=== PATIENT | male | born 1940 ===

== ENCOUNTER 2017-02-21 15:17 | Inpatient (IN) | payer MEDICARE ==
[~2017-02-21] VITALS: Ht 185.4 cm; Wt 94.3 kg
[2017-02-21 19:30] VITALS: BP 142/70
[2017-02-21] MEDS ORDERED: ACET-2154 PO (19:32)
[2017-02-21] MEDS ORDERED: DIPH50VI4 PO (19:32)
[2017-02-21] MEDS ORDERED: ALLO300T2 PO (19:32)
[2017-02-21] MEDS ORDERED: EVER10TA PO (19:32)
[2017-02-21] MEDS ORDERED: MULT-331 PO (19:32)
[2017-02-21] MEDS ORDERED: CARV6.252 PO (19:32)
[2017-02-21] MEDS ORDERED: CARI350T27 PO (19:32)
[2017-02-21] MEDS ORDERED: MAGN30OR PO (19:32)
[2017-02-21] MEDS ORDERED: HYDR-3326 PO (19:32)
[2017-02-21] MEDS ORDERED: UBID30CA11 PO (19:32)
[2017-02-21] MEDS ORDERED: LISI1TAB9 PO (19:32)
[2017-02-21] MEDS ORDERED: LORA4VIA19 IJ (19:32)
[2017-02-21] MEDS ORDERED: METF10002 PO (19:32)
[2017-02-21] MEDS ORDERED: CELE-85 PO (19:32)
[2017-02-21] MEDS ORDERED: METF500T4 PO (19:32)
--- NOTE | 2017-02-21 19:41 | NUR ---
Received to care Patient resting in bed. Patient is awake and alert x4 and able to verbalize all needs. Respirations are unlabored. No distress noted. Patient reports having pain 4/10 in both legs, and lower back. All other needs met. No complaints of discomfort. Bed in lowest position with 2/4 side rails up. Call light within reach. Bed alarm active for safety. Will continue to monitor.
--- NOTE | 2017-02-21 19:54 | NUR ---
Paged Dr. Early for medication reconciliation. Per MD, he said "okay, sounds good".
[2017-02-21] MEDS ORDERED: Medication Not On Formulary EA (Metformin Hcl 1,000 MG) PO SCH (21:30)
[2017-02-21] MEDS ORDERED: Medication Not On Formulary EA (Magnesium Hydroxide/Al Hydrox (Mag-Al Liquid) 30 ML) PO SCH (21:30)
[2017-02-22] MEDS ORDERED: ACETAMINOPHEN 325 MG TABLET PO SCH
[2017-02-22] MEDS ORDERED: HYDROCODONE/APAP 5-325MG TABLET ONE (00:31)
[2017-02-22] MEDS ORDERED: ACETAMINOPHEN 325 MG TABLET ONE (00:32)
[2017-02-22] MEDS ORDERED: HYDROCHLOROTHIAZIDE 12.5 MG CAPSULE ONE (00:33)
[2017-02-22] MEDS ORDERED: LISINOPRIL 10 MG TABLET ONE (00:33)
[2017-02-22] MEDS: HYDROCODONE/APAP 5-325MG TABLET PO PRN ×2 (00:44→08:55)
[2017-02-22] MEDS: HYDROCHLOROTHIAZIDE 12.5 MG CAPSULE PO SCH ×2 (00:45→08:51)
[2017-02-22] MEDS: LISINOPRIL 10 MG TABLET PO SCH ×2 (00:45→08:51)
[2017-02-22] MEDS: CARISOPRODOL 350 MG TABLET PO PRN ×2 (06:00→17:21)
[2017-02-22] MEDS ORDERED: CARISOPRODOL 350 MG TABLET ONE (06:11)
--- NOTE | 2017-02-22 07:00 | NUR ---
Pt received in bed, A/OX3, no distress noted. HOB elevated, on r/a, safety measures in place, Call light and personal belongings within reach.
[2017-02-22 07:17] LABS: CARBON DIOXIDE 29 mmol/L (21-32); CHLORIDE 101 mmol/L (98-107); CREATININE 1.2 mg/dL (0.6-1.3); GLUCOSE 184 mg/dL (74-106); MAGNESIUM 1.5 mg/dL (1.8-2.4); PHOSPHOROUS 3.7 mg/dL (2.5-4.9); POTASSIUM 3.6 mmol/L (3.5-5.1); UREA NITROGEN, BLOOD 24 mg/dL (7-18)
[2017-02-22 07:21] LABS: BASOPHILS % (AUTO) 0.4 % (0.0-2.0); EOSINOPHILS # (AUTO) 0.2 K/uL (0.0-0.7); EOSINOPHILS % (AUTO) 3.1 % (0.0-7.0); HEMOGLOBIN 8.3 G/DL (14.0-18.0); LYMPHOCYTES # (AUTO) 0.6 K/UL (0.8-4.8); LYMPHOCYTES % (AUTO) 11.2 % (20.5-51.5); MEAN CORPUSCULAR HGB CONC 35 g/dL (32.0-37.0); MEAN CORPUSCULAR VOLUME 80.8 FL (82.0-92.0); MONOCYTES # (AUTO) 0.6 K/UL (0.1-1.30); MONOCYTES % (AUTO) 10.8 % (0.0-11.0); NEUTROPHILS # (AUTO) 4.1 K/UL (1.8-8.9); NEUTROPHILS % (AUTO) 74.5 % (38.5-71.5); PLATELET COUNT (AUTO) 233 K/UL (150-450); RED BLOOD CELL COUNT(AUTO) 2.98 MIL/UL (4.7-6.1); WHITE BLOOD COUNT (AUTO) 5.5 K/UL (4.0-11.2)
[2017-02-22 07:25] VITALS: BP 120/80
[2017-02-22] MEDS ORDERED: MAGNESIUM HYDROXIDE 30 ML LIQUID UDC PO PRN (07:30)
[2017-02-22] MEDS: METFORMIN HCL 500 MG TABLET PO SCH ×2 (08:50→17:21)
[2017-02-22] MEDS: ALLOPURINOL 300 MG TABLET PO SCH (08:50)
[2017-02-22] MEDS: CELECOXIB 200 MG CAPSULE PO SCH ×2 (08:50→17:21)
[2017-02-22] MEDS: MULTIVITAMINS,THERAPEUTIC TABLET PO SCH (08:55)
[2017-02-22] MEDS ORDERED: Medication Not On Formulary EA (Lisinopril/HCTZ (Lisinopril-Hctz 10-12.5 Mg Tab) 1 EACH) PO SCH (09:00)
[2017-02-22] MEDS ORDERED: CARVEDILOL 6.25 MG TABLET PO SCH (09:00)
[2017-02-22] MEDS ORDERED: MULTIVITAMINS PO SCH (09:00)
[2017-02-22] MEDS ORDERED: MAGNESIUM OXIDE 400 MG TABLET PO ONE (12:00)
[2017-02-22] MEDS: CARVEDILOL 6.25 MG TABLET PO SCH ×2 (12:19→17:22)
--- NOTE | 2017-02-22 15:26 | NUR ---
Pt is taking home medication, [facility] pharmacy wants pt to get home medication. Pt states "I don't want to take that medication" he wants to clarify with his oncologist first, he stated he will call his oncologist today. He is not sure if he needs to continue that medication.
--- NOTE | 2017-02-22 18:30 | NUR ---
Pt seen by Dr. Henry discussed plan of care. made aware of [facility] home medication. States Pt can follow up with Oncologist after discharge. Call light within reach. No distress noted. Dressing to Right hip clean intact and patent.
[2017-02-22] MEDS ORDERED: OXYCODONE/APAP 5-325 MG TABLET PO ONE (19:45)
--- NOTE | 2017-02-22 19:45 | NUR ---
Received pt in bed, AAO x [address] Killian. No acute distress noted. Verbally responsive and able to make needs known. Complaining of pain on right hip and back. MD aware, ordered Percocet 5-235 mg PO x 1 now. All safety measures and fall precautions maintained. Call light within reach. Will continue to monitor.
--- NOTE | 2017-02-22 20:21 | NUR ---
Gave Percocet 5-235 mg PO x 1 as ordered by MD. Well tolerated. Call light within reach. Safety maintained. Will continue to monitor.
[2017-02-22 20:56] VITALS: BP 114/66
[2017-02-23] MEDS: HYDROCODONE/APAP 5-325MG TABLET PO PRN ×3 (04:57→23:42)
--- NOTE | 2017-02-23 06:47 | NUR ---
Pt slept well and comfortably throughout the shift. No acute distress noted. Medicated for pain as ordered. Tolerated well. Kept clean and dry. All needs met promptly. Safety maintained. Call light within reach. No current complaints of pain or discomfort. Will endorse to AM shift. Will continue to monitor.
[2017-02-23 08:19] VITALS: BP 136/75
--- NOTE | 2017-02-23 08:19 | NUR ---
Received patient awake, alert x4. With pain over right leg rated as 5/10. Not in any form of distress. CAll light within reach. Will continue to monitor.
[2017-02-23] MEDS ORDERED: EVEROLIMUS 7.5 MG PO SCH (09:00)
[2017-02-23] MEDS: CARVEDILOL 6.25 MG TABLET PO SCH ×2 (09:03→17:24)
[2017-02-23] MEDS: METFORMIN HCL 500 MG TABLET PO SCH ×2 (09:03→17:24)
[2017-02-23] MEDS: DRONABINOL 2.5 MG CAPSULE PO SCH ×2 (09:04→17:24)
[2017-02-23] MEDS: LISINOPRIL 10 MG TABLET PO SCH (09:04)
[2017-02-23] MEDS: ACETAMINOPHEN 325 MG TABLET PO PRN ×2 (09:04→17:25)
[2017-02-23] MEDS: CELECOXIB 200 MG CAPSULE PO SCH ×2 (09:04→17:24)
[2017-02-23] MEDS: ALLOPURINOL 300 MG TABLET PO SCH (09:04)
[2017-02-23] MEDS: HYDROCHLOROTHIAZIDE 12.5 MG CAPSULE PO SCH (09:04)
[2017-02-23] MEDS: MULTIVITAMINS,THERAPEUTIC TABLET PO SCH (09:04)
--- NOTE | 2017-02-23 09:15 | NUR ---
Pain rated as 5/10 over right leg. PRN Tylenol given. Still no bowel movement Milk of Magnesia given.
--- NOTE | 2017-02-23 11:39 | NUR ---
SPOKE WITH PATIENT AND FOLLOWED UP WITH HIM REGARDING THE AFINITOR MEDICATION. PATIENT CALLED HIS ONCOLOGIST DR. GABBY ALSTON AND HE SPOKE WITH MD'S AIRFRAME AND POWERPLANT TECHNICIAN AND PER DOCTOR'S OFFICE THEY WILL CALL BACK THE PATIENT IF THE PATIENT STILL NEEDS TO TAKE THE SAID MEDICATION. CALLED PHARMACY SPOKE WITH DEVORA AND INFORMED OF CURRENT SITUATION. WILL CONTINUE TO FOLLOW- UP.
--- NOTE | 2017-02-23 13:14 | NUR ---
Pain rated as as 7/10 over right leg. PRN [place] given.
--- NOTE | 2017-02-23 14:36 | NUR ---
INTERDISCIPLINARY TEAM SUMMARY
--- NOTE | 2017-02-23 18:32 | NUR ---
Turned and repositioned. Z-guard and Mepilex over sacral area. Tylenol PRN given. Complained of pain over lower back rated as 5/10
--- NOTE | 2017-02-23 19:40 | NUR ---
Received pt in bed, AAO x 3 on his cellphone. Verbally responsive and able to make needs known. No acute distress noted. Attempted to reposition pt, but pt refused. C/O pain in back and right hip 4/10 on pain scale. All safety measures and fall precautions maintained. Call light within reach. Will continue to monitor.
[2017-02-23 20:59] VITALS: BP 106/55
[2017-02-24] MEDS: ACETAMINOPHEN 325 MG TABLET PO PRN ×2 (03:50→14:10)
--- NOTE | 2017-02-24 07:08 | NUR ---
Slept comfortably throughout the shift. No complaints of pain or discomfort currently, medicated PRN with pain medications. Well tolerated. No acute distress noted. Kept clean and dry. All needs met promptly. BM x 3. Safety maintained. Will endorse to AM shift.
[2017-02-24 07:25] LABS: BASOPHILS % (AUTO) 0.7 % (0.0-2.0); EOSINOPHILS # (AUTO) 0.2 K/uL (0.0-0.7); EOSINOPHILS % (AUTO) 3.4 % (0.0-7.0); HEMATOCRIT 24.9 % (36.7-47.1); HEMOGLOBIN 8.8 g/dL (12.5-16.3); LYMPHOCYTES # (AUTO) 0.9 K/uL (20.0-40.0); LYMPHOCYTES % (AUTO) 14.4 % (20.5-51.5); MEAN CORPUSCULAR HEMOGLOBIN 28.4 uug (23.8-33.4); MEAN CORPUSCULAR HGB CONC 35 g/dL (32.5-36.3); MEAN CORPUSCULAR VOLUME 80.5 fL (73.0-96.2); MONOCYTES # (AUTO) 0.6 K/uL (2.0-10.0); MONOCYTES % (AUTO) 10.4 % (0.0-11.0); NEUTROPHILS # (AUTO) 4.3 K/uL (1.8-8.9); NEUTROPHILS % (AUTO) 71.1 % (38.5-71.5); PLATELET COUNT (AUTO) 321 K/uL (152-348)
[2017-02-24 07:47] LABS: IRON, SERUM 35 ug/dL (50-175)
[2017-02-24 07:49] LABS: THYROID STIMULATING HORMONE 5.781 mIU/mL (0.358-3.740)
[2017-02-24 08:01] LABS: ALANINE AMINOTRANSFERASE 51 U/L (16-63); ALKALINE PHOSPHATASE 190 U/L (50-136); ASPARTATE AMINOTRANSFERASE 116 U/L (15-37); BILIRUBIN,TOTAL 0.5 mg/dL (0.2-1.0); CARBON DIOXIDE 31 mmol/L (21-32); CHLORIDE 101 mmol/L (98-107); CHOLESTEROL 165 mg/dL (<200); CREATININE 1.4 mg/dL (0.6-1.3); GLUCOSE 127 mg/dL (74-106); HDL CHOLESTEROL 46 mg/dL (40-60); MAGNESIUM 1.6 mg/dL (1.8-2.4); PHOSPHOROUS 4.1 mg/dL (2.5-4.9); POTASSIUM 3.7 mmol/L (3.5-5.1); TOTAL PROTEIN, SERUM 6.6 g/dL (6.4-8.2); TRIGLYCERIDES 156 MG/DL (30-150); UREA NITROGEN, BLOOD 35 mg/dL (7-18)
[2017-02-24 08:24] VITALS: BP 141/90
[2017-02-24] MEDS: MULTIVITAMINS,THERAPEUTIC TABLET PO SCH (08:35)
[2017-02-24] MEDS: CARVEDILOL 6.25 MG TABLET PO SCH ×2 (08:35→18:04)
[2017-02-24] MEDS: HYDROCHLOROTHIAZIDE 12.5 MG CAPSULE PO SCH (08:36)
[2017-02-24] MEDS: METFORMIN HCL 500 MG TABLET PO SCH ×2 (08:36→18:02)
[2017-02-24] MEDS: DRONABINOL 2.5 MG CAPSULE PO SCH ×2 (08:37→18:02)
[2017-02-24] MEDS: CELECOXIB 200 MG CAPSULE PO SCH ×2 (08:37→18:02)
[2017-02-24] MEDS: ALLOPURINOL 300 MG TABLET PO SCH (08:40)
[2017-02-24] MEDS: HYDROCODONE/APAP 5-325MG TABLET PO PRN ×2 (08:53→18:22)
[2017-02-24] MEDS: LISINOPRIL 10 MG TABLET PO SCH (08:54)
--- NOTE | 2017-02-24 12:23 | NUR ---
Pt report received near bedside this morning, board updated. Pt assessed, awake, alert and oriented x4. Pt compliant with all routine administration of morning medications. Pt stated pain 6/10 of lower back and right leg as well, pain medication administered as PRN orders. Pt verbalized willingness to comply with all scheduled therapies and plan for today discussed. No acute distress noted. All safety and comfort measures met. Call light and personal items within reach. Will continue to monitor.
[2017-02-24] MEDS ORDERED: MAGNESIUM OXIDE 400 MG TABLET PO ONE (12:45)
--- NOTE | 2017-02-24 19:30 | NUR ---
Pt in room alert awake and oriented x 3. No acute distress noted. V/s are WNL. Dressing to right femur intact with no drainage or active bleeding. Mepilex to sacral area intact. States pain to backside 5/10 but refuses medication at this time. Able to move extremities without difficulty. Urinal placed at bedside and call light placed within reach.
[2017-02-25] MEDS: HYDROCODONE/APAP 5-325MG TABLET PO PRN ×3 (01:13→22:04)
--- NOTE | 2017-02-25 02:18 | NUR ---
Pt attempting several times to remove Bipap mask. RT is aware. No s/s of resp distress noted.
[2017-02-25] MEDS: ACETAMINOPHEN 325 MG TABLET PO PRN ×2 (04:44→14:36)
[2017-02-25 08:06] VITALS: BP 134/68
[2017-02-25] MEDS: CARVEDILOL 6.25 MG TABLET PO SCH ×2 (08:17→18:06)
[2017-02-25] MEDS: METFORMIN HCL 500 MG TABLET PO SCH ×2 (08:17→18:04)
[2017-02-25] MEDS: DRONABINOL 2.5 MG CAPSULE PO SCH ×2 (08:19→17:42)
[2017-02-25] MEDS: ALLOPURINOL 300 MG TABLET PO SCH (08:19)
[2017-02-25] MEDS: MULTIVITAMINS,THERAPEUTIC TABLET PO SCH (08:20)
[2017-02-25] MEDS: CELECOXIB 200 MG CAPSULE PO SCH ×2 (08:20→17:43)
--- NOTE | 2017-02-25 08:42 | NUR ---
Pt report received near bedside, board updated. Pt assessed, reports not sleeping well last night, and pain 6/10 lower left back. Pt compliant with all routine morning medication and [place] PRN for pain management. V/S 148/70, 90 pulse. All comfort and safety measures met. Personal items and call light within reach. Will continue to monitor.
[2017-02-25] MEDS: HYDROCHLOROTHIAZIDE 12.5 MG CAPSULE PO SCH (10:47)
[2017-02-25] MEDS: LISINOPRIL 10 MG TABLET PO SCH (10:50)
[2017-02-25] MEDS: Z GUARD REMEDY PASTE 57 GM TUBE TOP SCH ×2 (13:00→22:05)
--- NOTE | 2017-02-25 13:00 | NUR ---
WOUND CARE CONSULT: PT PRESENTS WITH RASH WITH SLIGHT EXCORIATION TO SACRAL/BUTTOCKS AREA. RECOMMENDATIONS MADE FOR SKIN PROTECTION AND CARE. DISCUSSED WITH NURSING STAFF. ALL SKIN PROTECTION MEASURES IN PLACE. WILL SEE PRN. JC IN AGREEMENT WITH PLAN OF CARE. Addendum: 02/25/17 at 1301 by MARISABEL GAMBLE RN Amended: Links added.
--- NOTE | 2017-02-25 13:10 | NUR ---
Pt seen by wound nurse for consult r/t slight rash on sacral/buttocks area. Plan of care discussed and new orders received to add Lortrimin to regimen. Skin protection and wound care interventions will be implemented per orders and endorsed to on coming shift.
--- NOTE | 2017-02-25 14:11 | NUR ---
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 Patient is a 76-year-old male admitted to ARU due to functional decline and impaired mobility. Patient suffered a fall, fracturing his right hip. Per patient, he was diagnosed with metastatic sweat gland cancer in 2014. Patient reported that he has a lot of pain in his lower back, making it difficult to participate in therapies. Mental Status: Patient appeared alert and oriented x4 during interview. He presented as pleasant and cooperative, but had a tearful affect. He made little eye contact during interview. Patient has been in the hospital since February 21, 2017. 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 He seems to be having difficulty coping with his loss of independence and possible role change. He also appears to still be coping with his cancer diagnosis and how it is affecting his life. Patient has been having conflict with his brother and sister due to their disagreements over restorationist. He stated that he "knows his sister loves him", but their disagreements cause him stress. Patient reported that he is exhausted and barely has the strength to talk. However, he reported that the care he is receiving in ARU is "excellent." Social: Patient reported that he receives most of his support from his friends. Many have offered to let him live with them, if that is ever needed. His sister has also visited him in the hospital. Patient currently lives with his older friend, whom he cares for. The friend currently has a caregiver while patient is in the hospital. Goals: Patient stated that his goal is to be able to walk. Interventions: SW engaged in active listening. SW provided emotional support and counseling. SW will provide referrals for caregiver support groups and cancer support groups. SW will encourage patient to comply with rehab goals.
[2017-02-25] MEDS: CLOTRIMAZOLE 1% CREAM 30 GM TUBE TOP SCH ×2 (18:09→22:05)
[2017-02-25] MEDS: Z GUARD REMEDY PASTE 57 GM TUBE TOP PRN (18:10)
--- NOTE | 2017-02-25 18:14 | NUR ---
Pt compliant with all PO medications and topical ointments applied to sacral area with mepilex applied, pictures taken and documented in chart. Pt repositioned per protocol and for comfort. V/s remain WNL. Pt reports having to void excessively being frustrating and would like to speak with Md r/t dose and frequency of related medication. Call light and personal items within reach. All safety and comfort measures met. Will continue to monitor and endorse to rn shift mgr.
--- NOTE | 2017-02-25 19:30 | NUR ---
RECEIVED IN BED, AWAKE, IN NO ACUTE SIGNS OF DISTRESS AT THIS TIME, DENIES PAIN. SAFETY MEASURES RENDERED.
[2017-02-25 20:43] VITALS: BP 119/61
[2017-02-26] MEDS: ACETAMINOPHEN 325 MG TABLET PO PRN ×3 (01:27→17:34)
[2017-02-26] MEDS: HYDROCODONE/APAP 5-325MG TABLET PO PRN ×2 (04:51→21:33)
--- NOTE | 2017-02-26 06:59 | NUR ---
PT SLEPT INTERMITTENTLY. PAIN MANAGEMENT PROVIDED FOR C/O LOWER BACK PAIN. RIGHT HIP INCISION DRESSING INTACT. NO DRAINAGE NOTED. SAFETY MEASURES RENDERED.
--- NOTE | 2017-02-26 07:01 | NUR ---
WOUND TX TO SACRUM.
[2017-02-26] MEDS: MULTIVITAMINS,THERAPEUTIC TABLET PO SCH (08:18)
[2017-02-26] MEDS: DRONABINOL 2.5 MG CAPSULE PO SCH ×2 (08:18→17:20)
[2017-02-26] MEDS: CELECOXIB 200 MG CAPSULE PO SCH ×2 (08:19→17:20)
[2017-02-26] MEDS: ALLOPURINOL 300 MG TABLET PO SCH (08:19)
[2017-02-26] MEDS: METFORMIN HCL 500 MG TABLET PO SCH ×2 (08:19→17:34)
[2017-02-26] MEDS: CARVEDILOL 6.25 MG TABLET PO SCH ×2 (08:21→18:00)
[2017-02-26 08:22] VITALS: BP 145/76
[2017-02-26] MEDS: HYDROCHLOROTHIAZIDE 12.5 MG CAPSULE PO SCH (08:29)
[2017-02-26] MEDS: LISINOPRIL 10 MG TABLET PO SCH (09:00)
[2017-02-26] MEDS: Z GUARD REMEDY PASTE 57 GM TUBE TOP SCH ×2 (09:25→21:38)
[2017-02-26] MEDS: CLOTRIMAZOLE 1% CREAM 30 GM TUBE TOP SCH ×2 (09:26→21:34)
--- NOTE | 2017-02-26 11:49 | NUR ---
Pt alert oriented x4, report received at bedside this morning, and board updated. Pt c/o / pain addressed with PRN Tylenol. Compliant with all routine medications except Diuretic r/t excessive urination, Pt education provided but still refused for today. Lisinipril held due to BP 110/58, 69 HR. Pt friend Yusef visited this earlier this morning. BM x1 cleaned and repositioned. Wound care provided as ordered with Lotrimin and mepilex applied. All comfort and safety measures met. Call light and personal items within reach. Will continue to monitor.
--- NOTE | 2017-02-26 15:27 | NUR ---
Referred by diet office to visit patient as patient request to have late snacks,nourishments. Spoke with the patient, PO intake is fluctuating ranging between 10-100% of meals. RD will rec boost glucose control once w/ dinner ,patient is receiving hs snacks Will monitor po intake. Full nutrition assessment will be per policy schedule. Addendum: 02/26/17 at [address] Amended: Links added.
--- NOTE | 2017-02-26 19:03 | NUR ---
Pt rested comfortably on and off this shift without therapy interruptions. Pt ate meals and tolerated medication administrations well this shift. Pt states 5/10 pain managed through the use of alternating PRN pain medications. Pt uses call light to address toileting assistance plus the use of a urinal at bedside, kept dry and clean. All safety and comfort needs met. Seen by MD, no new orders at this time. Will endorse to on coming caustic cresylate shift superintendent.
--- NOTE | 2017-02-26 19:30 | NUR ---
Patient seen during rounds already sleeping but arouseable to name. Complaining of pain 7/10 on his back and also on his R femur, explained patient the next due pain will be after an hour. Patient understood and provided some nonpharmacological interventions. Repositioned the patient at the same time. Vital signs taken BP 116/59, T 97.9, P 91, R 18, O2 sat on RA 92%. Breathing even and nonlabored. Call light in reach. will monitor the patient.
[2017-02-26 19:40] VITALS: BP 116/59
[2017-02-26] MEDS: Z GUARD REMEDY PASTE 57 GM TUBE TOP PRN (21:34)
[2017-02-27] MEDS: HYDROCODONE/APAP 5-325MG TABLET PO PRN (03:27)
--- NOTE | 2017-02-27 06:30 | NUR ---
Patient complained of pain at 9pm and 3:28am, [place] given per pt's request. Able to after giving the last pain med. Diaper changed per soiling, able to remove his bowel x1 throughout the shift. Sacral area cleansed with soap & water, dried well. Also applied with Lotrimin followed by Z guard and covered with mipalex. Kept clean and dry. All needs attended to. Will endorse to AM nurse.
[2017-02-27 08:08] VITALS: BP 139/73
--- NOTE | 2017-02-27 08:17 | NUR ---
SBAR report received, board updated. Pt awake, alert, and oriented x4. Pt actively participating with therapy at this time. No acute distress or pain noted at this time. Will continue to monitor and return for further assessment and medication administration.
[2017-02-27] MEDS: ACETAMINOPHEN 325 MG TABLET PO PRN ×2 (08:33→16:42)
[2017-02-27] MEDS: DRONABINOL 2.5 MG CAPSULE PO SCH ×2 (08:36→16:44)
[2017-02-27] MEDS: METFORMIN HCL 500 MG TABLET PO SCH ×2 (08:37→18:40)
[2017-02-27] MEDS: MULTIVITAMINS,THERAPEUTIC TABLET PO SCH (08:38)
[2017-02-27] MEDS: CELECOXIB 200 MG CAPSULE PO SCH ×2 (08:39→16:44)
[2017-02-27] MEDS: ALLOPURINOL 300 MG TABLET PO SCH (08:39)
[2017-02-27] MEDS: CARVEDILOL 6.25 MG TABLET PO SCH ×2 (08:41→18:00)
[2017-02-27 09:00] LABS: BASOPHILS # (AUTO) 0.1 K/uL (0.0-8.0); EOSINOPHILS # (AUTO) 0.3 K/uL (0.0-0.7); HEMATOCRIT 31.3 % (36.7-47.1); HEMOGLOBIN 10.4 g/dL (12.5-16.3); LYMPHOCYTES # (AUTO) 1.2 K/uL (20.0-40.0); LYMPHOCYTES % (AUTO) 12.3 % (20.5-51.5); MEAN CORPUSCULAR HEMOGLOBIN 27.5 uug (23.8-33.4); MEAN CORPUSCULAR HGB CONC 33 g/dL (32.5-36.3); MEAN CORPUSCULAR VOLUME 82.9 fL (73.0-96.2); MONOCYTES # (AUTO) 0.8 K/uL (2.0-10.0); MONOCYTES % (AUTO) 8.6 % (0.0-11.0); NEUTROPHILS # (AUTO) 7.4 K/uL (1.8-8.9); NEUTROPHILS % (AUTO) 75.1 % (38.5-71.5); RED BLOOD CELL COUNT(AUTO) 3.78 MIL/uL (4.06-5.63)
[2017-02-27] MEDS: CLOTRIMAZOLE 1% CREAM 30 GM TUBE TOP SCH (09:00)
[2017-02-27] MEDS: LISINOPRIL 10 MG TABLET PO SCH (09:00)
[2017-02-27] MEDS: Z GUARD REMEDY PASTE 57 GM TUBE TOP SCH (09:00)
[2017-02-27] MEDS: HYDROCHLOROTHIAZIDE 12.5 MG CAPSULE PO SCH (09:00)
[2017-02-27 09:06] LABS: ALANINE AMINOTRANSFERASE 71 U/L (16-63); ALKALINE PHOSPHATASE 253 U/L (50-136); ASPARTATE AMINOTRANSFERASE 114 U/L (15-37); BILIRUBIN,TOTAL 0.6 mg/dL (0.2-1.0); CARBON DIOXIDE 27 mmol/L (21-32); CHLORIDE 99 mmol/L (98-107); CREATININE 1.4 mg/dL (0.6-1.3); GLUCOSE 157 mg/dL (74-106); MAGNESIUM 1.3 mg/dL (1.8-2.4); PHOSPHOROUS 4.1 mg/dL (2.5-4.9); POTASSIUM 3.6 mmol/L (3.5-5.1); TOTAL PROTEIN, SERUM 7.6 g/dL (6.4-8.2)
[2017-02-27 09:25] LABS: UREA NITROGEN, BLOOD 29 mg/dL (7-18)
[2017-02-27 09:38] LABS: WHITE BLOOD COUNT (AUTO) 9.8 K/uL (3.6-10.2)
[2017-02-27 09:39] LABS: PLATELET COUNT (AUTO) 464 K/uL (152-348)
--- NOTE | 2017-02-27 17:55 | NUR ---
Pt has no change to status since yesterday. Pt has been compliant with all routine medication administration and therapies. Pt reports feeling fatigued and an increase in pain following physical exertion, and requests Tylenol to tx, administered per PRN protocol and evaluated as effective. Pt was changed this morning for a BMx1, cleaned, wound care to sacral area applied. Pt has been compliant with frequent changes in position as a more prominent way to address discomfort. BL heals off loading and pillows placed to relieve pressure from right side of lower back. Pt refused diuretic again this morning, made aware. Labs drawn. Personal items and call light placed within reach. All safety and comfort measures met. Will continue to monitor and endorse to overnight stocker.
--- NOTE | 2017-02-27 19:40 | NUR ---
Received pt. laying on bed looking uncomfortable but helped and assisted in changing position. Pt. appreciated the help. Denies of pain at this time. Vital signs taken BP 130/58, T 98, P 103, R 18, O2 98% RA. No acute distress noted. Will recheck Pulse rate later. patient appeared calm, relax and said he wants to sleep the whole night tonight. Placed call light and his urinal in reach. Will monito patient.
[2017-02-27 19:45] VITALS: BP 130/58
--- NOTE | 2017-02-27 21:00 | NUR ---
Pulse rate rechecked 95bpm. Patient slept after, denies of pain. Will continue to monitor.
[2017-02-28] MEDS: HYDROCODONE/APAP 5-325MG TABLET PO PRN ×3 (01:07→20:49)
[2017-02-28] MEDS: CLOTRIMAZOLE 1% CREAM 30 GM TUBE TOP SCH ×3 (01:10→20:50)
[2017-02-28] MEDS: Z GUARD REMEDY PASTE 57 GM TUBE TOP PRN ×2 (01:10→20:50)
[2017-02-28] MEDS: Z GUARD REMEDY PASTE 57 GM TUBE TOP SCH ×3 (01:12→20:51)
--- NOTE | 2017-02-28 06:15 | NUR ---
Diaper changed per soiling, soft stool x1 with foul smelling odor noted. Applied Lotrimin & Z guard on sacral area covered with mipalex. Vital signs WNL. Breathing even, no s/s of distress. Will endorse to AM nurse.
[2017-02-28 07:49] VITALS: BP 133/78
[2017-02-28] MEDS: LISINOPRIL 10 MG TABLET PO SCH (09:00)
[2017-02-28] MEDS: CELECOXIB 100 MG CAPSULE PO SCH ×2 (09:09→20:47)
[2017-02-28] MEDS: MULTIVITAMINS,THERAPEUTIC TABLET PO SCH (09:09)
[2017-02-28] MEDS: DRONABINOL 2.5 MG CAPSULE PO SCH ×2 (09:09→18:34)
[2017-02-28] MEDS: METFORMIN HCL 500 MG TABLET PO SCH ×2 (09:10→18:34)
[2017-02-28] MEDS: CARVEDILOL 6.25 MG TABLET PO SCH ×2 (09:13→18:40)
[2017-02-28] MEDS: ALLOPURINOL 300 MG TABLET PO SCH (09:17)
--- NOTE | 2017-02-28 11:18 | NUR ---
SBAR report received at bedside, board updated. Pt awake, alert, and oriented x4. All pertinent assessments completed, no SOB, but c/o pain /. Pt compliant with all routine morning medication administration and [place] administered per PRN orders. V/S 138/79, 99. Plan of care discussed, Chest Xray completed, results pending. All safety and comfort measures implemented. Call light and personal items within reach. Will continue to monitor.
[2017-02-28 16:28] LABS: *BILIRUBIN,URIN NEGATIVE (NEGATIVE); *BLOOD, URINE Trace-intact (NEGATIVE); *CLARITY,URINE SLIGHTLY CLOUDY (CLEAR); *COLOR,URINE YELLOW (YELLOW); *KETONES,URINE NEGATIVE (NEGATIVE); *PROTEIN,URINE NEGATIVE (NEGATIVE); *UROBILINOGEN,URINE 0.2 E.U./dl (NORMAL); LEUKOCYTE ESTERASE ,URINE NEGATIVE (NEGATIVE); NITRITE, URINE NEGATIVE (NEGATIVE); PH,URINE 5.5 (5.0-8.0); UGLUCOSE NEGATIVE (NEGATIVE)
--- NOTE | 2017-02-28 16:28 | NUR ---
Pt sat up for both breakfast and dinner meals today.Actively participated with PT and OT, well tolerated. Urine sample collected and brought to lab. Pain reported at a tolerable level. Will continue to monitor.
[2017-02-28 16:33] LABS: BACTERIA,URINE NONE SEEN /HPF (NONE SEEN); RBC,URINE 0-3 /HPF (0-3); SQUAMOUS EPITHELIAL CELL,UR NONE SEEN /HPF (NONE SEEN); WBC,URINE 0-3 /HPF (0-3)
[2017-02-28] MEDS: ACETAMINOPHEN 325 MG TABLET PO PRN (18:59)
[2017-02-28] MEDS: RIVAROXABAN 10 MG TABLET PO SCH (19:02)
--- NOTE | 2017-02-28 19:40 | NUR ---
Received pt. on bed, feeling uncomfortable complaining that he is passing out soft stools in his diaper. Assessed the pt. and found out that he had 2 episodes of soft stools since Am and this is his 3rd episode. Currently pt had a large, yellow, soft and foul smelling stools. Dr. Killian informed and Dr. Hatch, awaiting for orders. Vital signs taken, BP 118/60, T 98.4, P 92, R 18, O2 at 96% RA. No s/s of distress. Pain level of 6/10 on his back. Repositioned the patient. Call light in reach. Will continue to monitor.
[2017-02-28 20:00] VITALS: BP 118/60
--- NOTE | 2017-02-28 20:30 | NUR ---
Dr. Hatch ordered Stool for C-diff and start contact isolation possible C-diff. Will contnue to monitor.
[2017-02-28] MEDS: MAGNESIUM OXIDE 400 MG TABLET PO SCH (20:47)
--- NOTE | 2017-03-01 01:05 | NUR ---
Dr. Killian ordered Imodium 1 mg Q6hrs PRN for diarrhea. will continue to monitor.
--- NOTE | 2017-03-01 02:54 | NUR ---
Pt. had a BM episode again, still large, soft, yellow and foul smelling stool. will give med for diarrhea. pt. also requests for his pain pill [place] with pain level of 6/10. will continue to monitor the pt.
[2017-03-01] MEDS: LOPERAMIDE HCL 1 MG/5 ML UDC PO PRN (03:12)
[2017-03-01] MEDS: HYDROCODONE/APAP 5-325MG TABLET PO PRN ×2 (03:13→18:20)
[2017-03-01] MEDS ORDERED: LOPERAMIDE HCL 1 MG/5 ML UDC ONE (03:21)
--- NOTE | 2017-03-01 06:02 | NUR ---
pt. slept after pain pill and imodium given. Contact isolation precaution provided. For stool culture. All due meds given. All needs attended to. will endorse to AM shift nurse.
[2017-03-01 07:45] VITALS: BP 124/76
[2017-03-01] MEDS: CARVEDILOL 6.25 MG TABLET PO SCH ×2 (08:00→18:00)
[2017-03-01] MEDS: ALLOPURINOL 300 MG TABLET PO SCH (08:30)
[2017-03-01] MEDS: ACETAMINOPHEN 325 MG TABLET PO PRN ×2 (08:30→21:29)
[2017-03-01] MEDS: MULTIVITAMINS,THERAPEUTIC TABLET PO SCH (08:31)
[2017-03-01] MEDS: DRONABINOL 2.5 MG CAPSULE PO SCH (08:32)
[2017-03-01] MEDS: METFORMIN HCL 500 MG TABLET PO SCH ×2 (08:32→18:06)
[2017-03-01] MEDS: CELECOXIB 100 MG CAPSULE PO SCH ×2 (08:32→21:21)
[2017-03-01] MEDS: LISINOPRIL 10 MG TABLET PO SCH (08:35)
[2017-03-01] MEDS: Z GUARD REMEDY PASTE 57 GM TUBE TOP SCH ×2 (09:15→21:38)
[2017-03-01] MEDS: CLOTRIMAZOLE 1% CREAM 30 GM TUBE TOP SCH ×2 (09:15→21:22)
--- NOTE | 2017-03-01 10:05 | NUR ---
SBAR report received near bedside, board updated. Pt assessed, alert, oriented x4. NAD or SOB, pt reports pain 5/10. Tylenol administered per PRN orders. Pt compliant with all routine morning medication administration, requesting to take Lisinopril instead of Coreg. Pt reminded to use call light when feeling the urge to use the bathroom in order for timely stool sample to be collected. Isolation precautions in place, with no BM since rn shift mgr. Pt compliant with OT, assisted with grooming and dressing for 11:30 fruit picker to be transported to f/u Dr. Mayberry appointment later this afternoon. Travel consent signed, ambulance transportation signed and placed in chart. All comfort and safety measures met. Personal items and call light within reach. Will continue to monitor.
--- NOTE | 2017-03-01 11:30 | NUR ---
Pt denies any pain at this time. V/S WNL, stable conditio. Transportation arrived to slat pickler pt for f/u appointment. Address given by Can patient case manager. Report given to EMT and Pt escorted out.
--- NOTE | 2017-03-01 13:30 | NUR ---
Pt returned, assisted back into bed. No acute distress noted. v/s taken WNL. Lunch tray and snacks provided. Plan of care discussed. Will follow up with MD about possible new orders and activity. Will continue to monitor. All safety and comfort measures met. Call light within reach.
[2017-03-01] MEDS: RIVAROXABAN 10 MG TABLET PO SCH (18:14)
--- NOTE | 2017-03-01 19:40 | NUR ---
Pt. in bed, asleep but was up when called by name. Pt. complained of pain on his back, 07/19 will give Tylenol later. Repositioned patient Vital signs BP 118/68, T 98.4, P 98, R 19, O2 sat 94% RA. Breathing even and nonlabored. Call light within reach. will monitor the pt.
--- NOTE | 2017-03-01 19:52 | NUR ---
Pt has remained stable throughout this shift with no changes. Pt seen by Dr HOSEA,. Carl, no new orders. Will continue to monitor and endorse to night nurse.
[2017-03-01 20:11] VITALS: BP 118/68
[2017-03-01] MEDS: MAGNESIUM OXIDE 400 MG TABLET PO SCH (21:21)
[2017-03-01] MEDS: Z GUARD REMEDY PASTE 57 GM TUBE TOP PRN (21:22)
--- NOTE | 2017-03-02 06:28 | NUR ---
pt. able to sleep throughout the shift. he said he was in pain but only at 2/10, which for him is acceptable and he didn't want any pain pill at all. Photographic wound documentation done and placed in the chart. Wound dry,no discharges noted. Diaper changed per soiling. No episodes of soft stools in our entire shift. Kept clean, dry and comfortable. Will endorse to morning shift nurse.
[2017-03-02 07:30] VITALS: BP 127/77
[2017-03-02 07:31] LABS: BASOPHILS % (AUTO) 0.3 % (0.0-2.0); EOSINOPHILS # (AUTO) 0.2 K/uL (0.0-0.7); EOSINOPHILS % (AUTO) 3.4 % (0.0-7.0); HEMATOCRIT 26.5 % (40-50); HEMOGLOBIN 8.9 G/DL (14.0-18.0); LYMPHOCYTES % (AUTO) 14.4 % (20.5-51.5); MEAN CORPUSCULAR HEMOGLOBIN 27.8 UUG (27.0-31.0); MEAN CORPUSCULAR HGB CONC 34 g/dL (32.0-37.0); MEAN CORPUSCULAR VOLUME 82.8 FL (82.0-92.0); MONOCYTES # (AUTO) 0.8 K/UL (0.1-1.30); MONOCYTES % (AUTO) 10.8 % (0.0-11.0); NEUTROPHILS % (AUTO) 71.1 % (38.5-71.5); PLATELET COUNT (AUTO) 414 K/UL (150-450); RED BLOOD CELL COUNT(AUTO) 3.19 MIL/UL (4.7-6.1)
[2017-03-02 07:50] LABS: ALANINE AMINOTRANSFERASE 48 U/L (16-63); ALKALINE PHOSPHATASE 231 U/L (50-136); ASPARTATE AMINOTRANSFERASE 61 U/L (15-37); BILIRUBIN,TOTAL 0.5 mg/dL (0.2-1.0); CARBON DIOXIDE 30 mmol/L (21-32); CHLORIDE 101 mmol/L (98-107); CREATININE 1.3 mg/dL (0.6-1.3); GLUCOSE 111 mg/dL (74-106); MAGNESIUM 1.4 mg/dL (1.8-2.4); PHOSPHOROUS 3.9 mg/dL (2.5-4.9); POTASSIUM 3.7 mmol/L (3.5-5.1); TOTAL PROTEIN, SERUM 6.7 g/dL (6.4-8.2); UREA NITROGEN, BLOOD 28 mg/dL (7-18)
[2017-03-02] MEDS: ACETAMINOPHEN 325 MG TABLET PO PRN ×2 (08:24→15:26)
[2017-03-02] MEDS: MULTIVITAMINS,THERAPEUTIC TABLET PO SCH (08:27)
[2017-03-02] MEDS: ALLOPURINOL 300 MG TABLET PO SCH (08:28)
[2017-03-02] MEDS: CELECOXIB 100 MG CAPSULE PO SCH ×2 (08:28→20:37)
[2017-03-02] MEDS: DRONABINOL 2.5 MG CAPSULE PO SCH ×2 (08:30→17:50)
[2017-03-02] MEDS: METFORMIN HCL 500 MG TABLET PO SCH ×2 (08:31→17:51)
[2017-03-02] MEDS: CARVEDILOL 6.25 MG TABLET PO SCH ×2 (08:32→18:00)
[2017-03-02] MEDS: CLOTRIMAZOLE 1% CREAM 30 GM TUBE TOP SCH ×2 (08:33→20:38)
[2017-03-02] MEDS: Z GUARD REMEDY PASTE 57 GM TUBE TOP SCH ×2 (08:34→20:38)
[2017-03-02] MEDS: Z GUARD REMEDY PASTE 57 GM TUBE TOP PRN (08:34)
[2017-03-02] MEDS: LISINOPRIL 10 MG TABLET PO SCH (09:00)
--- NOTE | 2017-03-02 10:47 | NUR ---
SBAR report received at bedside, board updated. Pt assessed, pain 09/18, NAD, no SOB. Tylenol administered per PRN orders. V/S taken. Pt compliant with all routine morning medications. All comfort and safety measures met at this time. Call light and personal items within reach. Will continue to monitor.
--- NOTE | 2017-03-02 14:13 | NUR ---
Pt had bowel movement in diaper, stool sample collected and sent to lab. Pt assisted, clean, dry, and ointment applied. Will f/u for results r/t if continued isolation is still required.
--- NOTE | 2017-03-02 15:19 | NUR ---
INTERDISCIPLINARY TEAM CONFERENCE
--- NOTE | 2017-03-02 15:22 | NUR ---
INTERDISCIPLINARY TEAM CONFERENCE
[2017-03-02] MEDS: LOPERAMIDE HCL 1 MG/5 ML UDC PO PRN (15:26)
[2017-03-02 15:58] VITALS: BP 125/69
[2017-03-02] MEDS ORDERED: MAGNESIUM OXIDE 400 MG TABLET PO ONE (17:15)
[2017-03-02] MEDS: RIVAROXABAN 10 MG TABLET PO SCH (18:01)
--- NOTE | 2017-03-02 19:38 | NUR ---
Pt seen by MD, no new orders or changes to Pt status. Will endorse to recreation facility manager.
[2017-03-02 19:49] VITALS: BP 109/60
--- NOTE | 2017-03-02 20:00 | NUR ---
NSG: RECEIVED PATIENT LAYING IN BED.A/O X3 VERBALLY RESPONSIVE. PLEASANT UPON APPROACH. CONTINUE ON CONTACT ISOLATION. NO C/O PAIN OR DISCOMFORT AT THIS TIME. ASSISTED IN ADL'S. INSTRUCTED TO CALL NURSE FOR PAIN AND ASSISTANCE VIA CALL LIGHT. CALL LIGHT W/IN REACH.
[2017-03-02] MEDS: MAGNESIUM OXIDE 400 MG TABLET PO SCH (20:37)
[2017-03-02] MEDS: HYDROCODONE/APAP 5-325MG TABLET PO PRN (20:46)
[2017-03-03] MEDS: ACETAMINOPHEN 325 MG TABLET PO PRN (05:36)
--- NOTE | 2017-03-03 06:54 | NUR ---
NSG:pt.Patient slept well throughout the shift. medicated x2 with norco and tylenol for pain through the night. Wound dry,no discharges noted. Assisted to use urinal as needed. No episodes of loose stools in our entire shift. Kept clean, dry and comfortable. Resting in bed comfortably. call light w/in reach.
--- NOTE | 2017-03-03 08:10 | NUR ---
Received patient, resting in bed. Alert, awake x4. With tolerable pain over right leg. Refused pain medications. Not in apparent distress. Call light within reach.
[2017-03-03] MEDS: MULTIVITAMINS,THERAPEUTIC TABLET PO SCH (09:00)
[2017-03-03] MEDS: ALLOPURINOL 300 MG TABLET PO SCH (09:01)
[2017-03-03] MEDS: METFORMIN HCL 500 MG TABLET PO SCH ×2 (09:01→17:34)
[2017-03-03] MEDS: CELECOXIB 100 MG CAPSULE PO SCH ×2 (09:01→21:53)
[2017-03-03] MEDS: Z GUARD REMEDY PASTE 57 GM TUBE TOP SCH ×2 (09:01→21:00)
[2017-03-03] MEDS: LISINOPRIL 10 MG TABLET PO SCH (09:01)
[2017-03-03] MEDS: DRONABINOL 2.5 MG CAPSULE PO SCH ×3 (09:01→17:44)
[2017-03-03] MEDS: CLOTRIMAZOLE 1% CREAM 30 GM TUBE TOP SCH ×2 (09:02→21:58)
[2017-03-03] MEDS: CARVEDILOL 6.25 MG TABLET PO SCH ×2 (09:02→17:44)
[2017-03-03 10:01] VITALS: BP 130/73
[2017-03-03 10:36] VITALS: BP 116/66
--- NOTE | 2017-03-03 13:03 | NUR ---
Patient able to transfer well to toilet with minimal assistance. No BM. No complaints of abdominal discomfort. Tolerated lunch well.
[2017-03-03] MEDS: HYDROCODONE/APAP 5-325MG TABLET PO PRN ×2 (14:42→21:54)
--- NOTE | 2017-03-03 16:00 | NUR ---
With pain over leg rated as 8/10. PRN [place] given
[2017-03-03] MEDS: RIVAROXABAN 10 MG TABLET PO SCH (17:33)
--- NOTE | 2017-03-03 17:51 | NUR ---
Refused Marinol and patient said he does not want to be hungry all the time. Discussed risks and benefits but patient still refuses.
--- NOTE | 2017-03-03 19:30 | NUR ---
Received pt resting comfortably in bed. Visitors at bedside. AAO x4. Able to make needs known. In contact isolation for possible C. diff. Result pending. No acute distress noted. No c/o pain or discomfort at this time. Safety measures and isolation maintained. Call light and personal belongings within reach. Will continue to monitor.
[2017-03-03 21:51] VITALS: BP 111/64
[2017-03-03] MEDS: MAGNESIUM OXIDE 400 MG TABLET PO SCH (21:54)
[2017-03-03] MEDS: Z GUARD REMEDY PASTE 57 GM TUBE TOP PRN ×3 (21:58→22:00)
[2017-03-04] MEDS: ACETAMINOPHEN 325 MG TABLET PO PRN ×2 (03:58→19:56)
--- NOTE | 2017-03-04 05:39 | NUR ---
Pt slept comfortably t/o the night. Pt complained of pain and was given [place] last night and also tylenol this commercial real estate underwriter. Vital signs stable. On contact isolation for possible c. diff. Safety measures maintained. Call light within reach. Will endorse to day shift RN. Continue to monitor.
--- NOTE | 2017-03-04 07:10 | NUR ---
RECEIVED REPORT FROM NEUROLOGY SPECIALIST NURSE, RESP EVERN/UNLABORED, NO S/S OF PAIN, PT RESTING COMFORTABLE, CALL LIGHT IN REACH, WILL CONTINUE TO MONITOR.
[2017-03-04] MEDS: MULTIVITAMINS,THERAPEUTIC TABLET PO SCH (08:48)
[2017-03-04] MEDS: DRONABINOL 2.5 MG CAPSULE PO SCH ×2 (08:48→17:00)
[2017-03-04] MEDS: ALLOPURINOL 300 MG TABLET PO SCH (08:48)
[2017-03-04] MEDS: CELECOXIB 100 MG CAPSULE PO SCH ×2 (08:48→21:07)
[2017-03-04] MEDS: METFORMIN HCL 500 MG TABLET PO SCH ×2 (08:48→17:32)
[2017-03-04] MEDS: CARVEDILOL 6.25 MG TABLET PO SCH ×2 (08:49→17:32)
[2017-03-04] MEDS: LISINOPRIL 10 MG TABLET PO SCH (09:29)
[2017-03-04] MEDS: Z GUARD REMEDY PASTE 57 GM TUBE TOP SCH ×2 (09:30→21:08)
[2017-03-04] MEDS: CLOTRIMAZOLE 1% CREAM 30 GM TUBE TOP SCH ×2 (09:30→21:08)
--- NOTE | 2017-03-04 13:28 | NUR ---
PT SLEEPING INTERMITTENTLY, NO C/O PAIN, CALL LIGHT IN REACH WILL CONTINUE TO MONITOR PT
[2017-03-04] MEDS: RIVAROXABAN 10 MG TABLET PO SCH (18:18)
--- NOTE | 2017-03-04 18:35 | NUR ---
PT RESTING COMFORTABLY IN BED NO C/O PAIN, CALL LIGHT IN REACH, WILL ENDORSE TO PAINTER AIRBRUSH NURSE.
--- NOTE | 2017-03-04 19:49 | NUR ---
Received pt resting comfortably in bed. AAOx4. No acute distress noted. C/o pain 6/10 on the back. Will follow through with intervention. Dr. Henry talking to the patient at bedside right now. Contact isolation for possible c.diff. Safety measures and isolation maintained. Call light and personal belongings within reach. Will continue to monitor.
[2017-03-04] MEDS: MAGNESIUM OXIDE 400 MG TABLET PO SCH (21:07)
[2017-03-04 21:16] VITALS: BP 113/60
--- NOTE | 2017-03-04 21:30 | NUR ---
Result for c.diff came out to be negative. Notified Dr. Henry and ordered to D/C isolation. Carried out order. Will continue to monitor patient.
[2017-03-05] MEDS: HYDROCODONE/APAP 5-325MG TABLET PO PRN ×3 (01:54→17:10)
--- NOTE | 2017-03-05 05:34 | NUR ---
Pt slept intermittently at night. C/o pain 7/10 on his back and [place] was given at around 0200. Contact isolation was D/C. Meds given as prescribed. All needs attended to promptly. Safety measures maintained. Call light and personal belongings within reach. Will endorse to day shift RN. Continue to monitor.
--- NOTE | 2017-03-05 08:17 | NUR ---
PATIENT NOTED RESTING IN BED WITH EYES CLOSED, COMPLAINS OF PAIN 09/18, NO SIGNS OF DISTRESS NOTED, CALL IGHT IN REACH, BED LOCKED AND IN LOWEST POSITION
[2017-03-05] MEDS: CELECOXIB 100 MG CAPSULE PO SCH ×2 (08:47→21:25)
[2017-03-05] MEDS: METFORMIN HCL 500 MG TABLET PO SCH ×2 (08:47→17:09)
[2017-03-05] MEDS: MULTIVITAMINS,THERAPEUTIC TABLET PO SCH (08:47)
[2017-03-05] MEDS: CARVEDILOL 6.25 MG TABLET PO SCH ×2 (08:48→17:09)
[2017-03-05] MEDS: ALLOPURINOL 300 MG TABLET PO SCH (08:48)
[2017-03-05] MEDS: LISINOPRIL 10 MG TABLET PO SCH (08:49)
[2017-03-05] MEDS: Z GUARD REMEDY PASTE 57 GM TUBE TOP SCH ×2 (08:52→21:26)
[2017-03-05] MEDS: CLOTRIMAZOLE 1% CREAM 30 GM TUBE TOP SCH ×2 (08:52→21:57)
[2017-03-05 09:00] VITALS: BP 127/61
[2017-03-05] MEDS: RIVAROXABAN 10 MG TABLET PO SCH (17:05)
[2017-03-05 20:33] VITALS: BP 104/54
[2017-03-05] MEDS: CARISOPRODOL 350 MG TABLET PO PRN (21:24)
[2017-03-05] MEDS: diphenhydrAMINE 25 MG/10 ML UDC NG PRN (21:25)
[2017-03-05] MEDS: MAGNESIUM OXIDE 400 MG TABLET PO SCH (21:25)
[2017-03-06] MEDS: HYDROCODONE/APAP 5-325MG TABLET PO PRN ×2 (02:32→15:05)
[2017-03-06 07:10] VITALS: BP 122/81
[2017-03-06] MEDS: METFORMIN HCL 500 MG TABLET PO SCH ×2 (07:49→17:41)
[2017-03-06] MEDS: CARISOPRODOL 350 MG TABLET PO PRN (07:50)
[2017-03-06] MEDS: CARVEDILOL 6.25 MG TABLET PO SCH ×2 (07:50→17:41)
[2017-03-06] MEDS: MULTIVITAMINS,THERAPEUTIC TABLET PO SCH (09:45)
[2017-03-06] MEDS: ALLOPURINOL 300 MG TABLET PO SCH (09:45)
[2017-03-06] MEDS: CELECOXIB 100 MG CAPSULE PO SCH ×2 (09:45→20:14)
[2017-03-06] MEDS: LISINOPRIL 10 MG TABLET PO SCH (09:45)
[2017-03-06] MEDS: CLOTRIMAZOLE 1% CREAM 30 GM TUBE TOP SCH ×2 (09:51→20:15)
[2017-03-06] MEDS: Z GUARD REMEDY PASTE 57 GM TUBE TOP SCH ×2 (09:52→20:15)
[2017-03-06] MEDS: RIVAROXABAN 10 MG TABLET PO SCH (17:42)
--- NOTE | 2017-03-06 19:16 | NUR ---
patient stable throughout shift. VS WNL. all medication given per MD order. norco effective for pain in lower back. will endorse to referral agent.
--- NOTE | 2017-03-06 19:35 | NUR ---
Received pt complaining of pain on his back 09/18. Assisted to the walker as he tried to relieve the pain by sitting down. Patient asked for pain med. Will follow through with interventions. No acute distress noted. No c/o pain or discomfort at this time. Safety measures maintained. Call light and personal belongings within reach. Will continue to monitor.
[2017-03-06] MEDS: ACETAMINOPHEN 325 MG TABLET PO PRN (20:14)
[2017-03-06] MEDS: MAGNESIUM OXIDE 400 MG TABLET PO SCH (20:14)
[2017-03-06 20:33] VITALS: BP 116/60
[2017-03-06] MEDS: diphenhydrAMINE 25 MG/10 ML UDC NG PRN (21:02)
[2017-03-07] MEDS: HYDROCODONE/APAP 5-325MG TABLET PO PRN ×2 (03:29→13:05)
--- NOTE | 2017-03-07 05:20 | NUR ---
Patient slept intermittently at night. C/o of pain on the back 10/18, interventions followed and norco given for pain and was effective. All needs attended to promptly. Safety measures maintained. Call light within reach. Will endorse to day shift RN. Continue to monitor.
[2017-03-07 07:10] VITALS: BP 106/54
[2017-03-07] MEDS: MULTIVITAMINS,THERAPEUTIC TABLET PO SCH (07:48)
[2017-03-07] MEDS: CELECOXIB 100 MG CAPSULE PO SCH ×2 (07:49→20:02)
[2017-03-07] MEDS: ACETAMINOPHEN 325 MG TABLET PO PRN ×2 (07:49→17:46)
[2017-03-07] MEDS: METFORMIN HCL 500 MG TABLET PO SCH ×2 (07:49→17:06)
[2017-03-07] MEDS: Z GUARD REMEDY PASTE 57 GM TUBE TOP SCH ×2 (07:49→20:00)
[2017-03-07] MEDS: ALLOPURINOL 300 MG TABLET PO SCH (07:49)
[2017-03-07] MEDS: CLOTRIMAZOLE 1% CREAM 30 GM TUBE TOP SCH ×2 (07:50→20:01)
[2017-03-07] MEDS: LISINOPRIL 10 MG TABLET PO SCH (07:55)
[2017-03-07] MEDS: CARVEDILOL 6.25 MG TABLET PO SCH ×2 (07:55→17:32)
[2017-03-07] MEDS: RIVAROXABAN 10 MG TABLET PO SCH (17:22)
--- NOTE | 2017-03-07 19:03 | NUR ---
End of shift: Pt resting in bed awake and alert with fall precautions and safety measures maintained. Call light within reach and all needs met. Pt stable and nad noted.
--- NOTE | 2017-03-07 19:51 | NUR ---
Received pt resting comfortably in bed. AAO x4. No acute distress noted. C/o pain on the back 09/18. Will follow through with interventions. Safety measures maintained. Call light and personal belongings within reach. Will continue to monitor.
[2017-03-07] MEDS: diphenhydrAMINE 25 MG/10 ML UDC NG PRN (20:01)
[2017-03-07] MEDS: MAGNESIUM OXIDE 400 MG TABLET PO SCH (20:01)
[2017-03-08] MEDS: HYDROCODONE/APAP 5-325MG TABLET PO PRN ×3 (01:45→17:07)
[2017-03-08] MEDS: ACETAMINOPHEN 325 MG TABLET PO PRN (06:04)
--- NOTE | 2017-03-08 06:20 | NUR ---
Pt slept comfortably t/o the night. Vital signs stable. C/o pain this morning and was given tylenol. Pt is to be discharged today. Wound site healing well. All needs attended to promptly. Safety measures maintained. Call light and personal belongings within reach. Will endorse to day shift RN. Continue to monitor.
--- NOTE | 2017-03-08 07:24 | NUR ---
RECEIVED PATIENT ASLEEP, LYING ON BED ON A SEMI- GAVIRIA'S POSITION WITH NO SOB, DISTRESS OR ANY DISCOMFORTS NOTED. EASILY AROUSED WITH CALL LIGHT WITHIN REACH. ALL NEEDS WERE ATTENDED AND ANTICIPATED. WILL CONTINUE TO MONITOR.
[2017-03-08] MEDS: CARVEDILOL 6.25 MG TABLET PO SCH ×2 (08:22→17:08)
[2017-03-08] MEDS: METFORMIN HCL 500 MG TABLET PO SCH ×2 (08:22→17:06)
[2017-03-08] MEDS: MULTIVITAMINS,THERAPEUTIC TABLET PO SCH (08:22)
[2017-03-08] MEDS: LISINOPRIL 10 MG TABLET PO SCH (08:22)
[2017-03-08 08:23] VITALS: BP 146/80
[2017-03-08] MEDS: CELECOXIB 100 MG CAPSULE PO SCH (08:23)
[2017-03-08] MEDS: ALLOPURINOL 300 MG TABLET PO SCH (08:24)
[2017-03-08] MEDS: Z GUARD REMEDY PASTE 57 GM TUBE TOP SCH (08:33)
[2017-03-08] MEDS: CLOTRIMAZOLE 1% CREAM 30 GM TUBE TOP SCH (08:33)
--- NOTE | 2017-03-08 15:03 | NUR ---
RECEIVED NEW ORDER FROM DR. MARINO TO DISCHARGE THE PATIENT TODAY TO [facility] WITH [facility] FOR PT/ OT/ NURSING. ALSO FOLLOW UP APPT WITH DR. SILVA ON MARCH 16, 2017 AT 11:15AM. ORDERS WERE NOTED AND CARRIED OUT. PATIENT MADE AWARE AND AGREED. OFFERED FLU SHOT TO THE PATIENT BUT PATIENT REFUSED TO HAVE HIS FLU SHOT. EXPLAINED RISKS AND BENEFITS BUT STILL PATIENT STRONGLY REFUSED. INFORMED.
--- NOTE | 2017-03-08 15:30 | NUR ---
REPORT GIVEN TO ANNALISE SNEED. PICTURES OF PATIENT'S RIGHT HIP SURGICAL INCISION AND SACRAL SITES WERE TAKEN, FILED IN PATIENT'S CHART.
[2017-03-08] MEDS: RIVAROXABAN 10 MG TABLET PO SCH (17:01)
[2017-03-08 17:08] VITALS: BP 118/70
--- NOTE | 2017-03-08 17:29 | NUR ---
Patient was discharged to [facility] in stable condition. Alert and oriented able to verbalize needs. All belongings were complete. 1800 scheduled medications were given. [place] 5-325 was given since patient verbalized he is in pain. reported to 3 grommet machine operator of [facility]. Patient was transported to [facility] on a gurney on an ambulance with no SOB or distress. Health teachings were given to the patient, verbalized understanding.
== END 2017-03-08 17:30 | disposition home health service (06) | DRG 559 ==
PROVIDERS: ADMIT Physical Medicine & Rehabilitation Pain Medicine; ATTEND Physical Medicine & Rehabilitation Pain Medicine
DX: S72.141D Displaced intertrochanteric fracture of right femur, subsequent encounter for closed fracture with routine healing (principal); E43 Unspecified severe protein-calorie malnutrition; N17.0 Acute kidney failure with tubular necrosis; D68.59 Other primary thrombophilia; C79.9 Secondary malignant neoplasm of unspecified site; D50.0 Iron deficiency anemia secondary to blood loss (chronic); E11.9 Type 2 diabetes mellitus without complications; E83.42 Hypomagnesemia; Z85.828 Personal history of other malignant neoplasm of skin; E03.9 Hypothyroidism, unspecified; I10 Essential (primary) hypertension; R26.9 Unspecified abnormalities of gait and mobility; W19.XXXD Unspecified fall, subsequent encounter; T83.83XD Hemorrhage due to genitourinary prosthetic devices, implants and grafts, subsequent encounter; R53.1 Weakness; F32.9 Major depressive disorder, single episode, unspecified; K59.00 Constipation, unspecified; M10.9 Gout, unspecified; M19.90 Unspecified osteoarthritis, unspecified site; M54.5 Low back pain; R19.7 Diarrhea, unspecified; M47.9 Spondylosis, unspecified
CPT/HCPCS: 36415; 71010; 82306; 83550; 83735; 84100; 84443; 85025; 86625; 87046; 87086; 92523; 92526; 92610; 97110; 97112; 97116; 97165; 97530; 97535; A4663; Q0163; Q0167

== ENCOUNTER 2017-05-07 23:33 | Inpatient (IN) | payer MEDICARE ==
[~2017-05-07] VITALS: Ht 185.4 cm; Wt 73.3 kg
[~2017-05-07 23:33] MED LIST: ACET-2154 PO; ALLO300T2 PO; CARI350T27 PO; CARV6.252 PO; CELE-85 PO; DIPH50VI4 PO; EVER10TA PO; HYDR-3326 PO; LISI1TAB9 PO; LORA4VIA19 IJ; MAGN30OR PO; METF10002 PO; METF500T4 PO; MULT-331 PO; UBID30CA11 PO
--- NOTE | 2017-05-07 23:42 | NUR ---
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 Pt c/o up to 10/10 anal pain and lesser ABD generalized pain. Pt denies CP, SOB, dizziness, n/v, no other complaints, minor distress noted.
[2017-05-08] MEDS ORDERED: IV NORMAL SALINE 1000 ML BAG IV ONE
[2017-05-08] MEDS ORDERED: ONDANSETRON 4 MG/2 ML VIAL IV ONE
[2017-05-08] MEDS ORDERED: HYDROMORPHONE 1 MG/1 ML DISP.SYRIN ONE ×2 (00:21→02:27)
[2017-05-08] MEDS ORDERED: ONDANSETRON 4 MG/2 ML VIAL ONE ×2 (00:21→02:27)
[2017-05-08 00:34] LABS: ALANINE AMINOTRANSFERASE 15 U/L (16-63); ALKALINE PHOSPHATASE 360 U/L (50-136); ASPARTATE AMINOTRANSFERASE 94 U/L (15-37); BILIRUBIN,DIRECT 0.1 mg/dL (0.0-0.2); BILIRUBIN,TOTAL 0.4 mg/dL (0.2-1.0); CARBON DIOXIDE 29 mmol/L (21-32); CHLORIDE 98 mmol/L (98-107); CREATININE 1.2 mg/dL (0.6-1.3); GLUCOSE 135 mg/dL (74-106); LIPASE 124 U/L (73-393); POTASSIUM 3.6 mmol/L (3.5-5.1); TOTAL PROTEIN, SERUM 7.4 g/dL (6.4-8.2); UREA NITROGEN, BLOOD 28 mg/dL (7-18)
[2017-05-08 00:43] LABS: BASOPHILS % (AUTO) 0.3 % (0.0-2.0); EOSINOPHILS % (AUTO) 0.5 % (0.0-7.0); HEMATOCRIT 35.7 % (36.7-47.1); LYMPHOCYTES # (AUTO) 1.1 K/uL (20.0-40.0); LYMPHOCYTES % (AUTO) 16.7 % (20.5-51.5); MEAN CORPUSCULAR HEMOGLOBIN 27.6 uug (23.8-33.4); MEAN CORPUSCULAR HGB CONC 34 g/dL (32.5-36.3); MEAN CORPUSCULAR VOLUME 82.1 fL (73.0-96.2); MONOCYTES # (AUTO) 0.6 K/uL (2.0-10.0); MONOCYTES % (AUTO) 8.8 % (0.0-11.0); NEUTROPHILS % (AUTO) 73.7 % (38.5-71.5); PLATELET COUNT (AUTO) 228 K/uL (152-348); RED BLOOD CELL COUNT(AUTO) 4.34 MIL/uL (4.06-5.63); WHITE BLOOD COUNT (AUTO) 6.8 K/uL (3.6-10.2)
--- NOTE | 2017-05-08 00:55 | NUR ---
Pt back from CT. Attempting to use urinal again.
[2017-05-08] MEDS ORDERED: LIDO30AD10 TD (01:58)
[2017-05-08] MEDS ORDERED: POLY119P17 PO (01:58)
[2017-05-08] MEDS ORDERED: LOPE2TAB25 PO (01:58)
[2017-05-08] MEDS ORDERED: ALBU8.5H8 IH (01:58)
[2017-05-08] MEDS ORDERED: DIPH25TA62 PO (01:58)
[2017-05-08] MEDS ORDERED: MORP30CP13 PO (01:58)
[2017-05-08] MEDS ORDERED: NA P133E RC (01:58)
[2017-05-08] MEDS ORDERED: LISI10TA5 PO (01:58)
[2017-05-08] MEDS ORDERED: MAGN400T6 PO (01:58)
[2017-05-08] MEDS ORDERED: LEVO75TA7 PO (01:58)
[2017-05-08] MEDS ORDERED: RIVA10TA PO (01:58)
[2017-05-08] MEDS ORDERED: OXYC30TA2 PO (01:58)
[2017-05-08] MEDS ORDERED: DOCU100C36 PO (01:58)
[2017-05-08] MEDS ORDERED: HYDROCODONE/APAP 5-325MG TABLET PO PRN (02:00)
[2017-05-08] MEDS ORDERED: MAGNESIUM HYDROXIDE 30 ML LIQUID UDC PO PRN (02:00)
[2017-05-08] MEDS ORDERED: ACETAMINOPHEN 325 MG TABLET PO PRN (02:00)
[2017-05-08] MEDS ORDERED: INSULIN REGULAR, HUMAN 300 UNIT/3 ML VIAL SQ PRN (02:00)
[2017-05-08] MEDS ORDERED: LORAZEPAM 2 MG/1 ML VIAL IV PRN (02:00)
[2017-05-08] MEDS ORDERED: CARISOPRODOL 350 MG TABLET PO PRN (02:00)
[2017-05-08] MEDS ORDERED: DEXTROSE 50% 50 ML DISP.SYRIN IV PRN (02:00)
[2017-05-08] MEDS ORDERED: ONDANSETRON 4 MG/2 ML VIAL IV PRN (02:00)
[2017-05-08] MEDS ORDERED: HYDROMORPHONE 1 MG/1 ML DISP.SYRIN IM PRN (02:00)
[2017-05-08] MEDS ORDERED: hydrALAZINE HCL 25 MG TABLET PO PRN (02:00)
[2017-05-08] MEDS ORDERED: Z GUARD REMEDY PASTE 57 GM TUBE TOP PRN (02:00)
[2017-05-08] MEDS ORDERED: MORPHINE SULFATE 2 MG/1 ML DISP.SYRIN IV PRN (02:00)
[2017-05-08] MEDS ORDERED: ONDANSETRON IV *ER 4 MG/2 ML VIAL IV ONE (02:15)
[2017-05-08] MEDS ORDERED: HYDROMORPHONE 1 MG/1 ML DISP.SYRIN IV ONE ×2 (02:15)
--- NOTE | 2017-05-08 02:23 | NUR ---
Do NOT use pt's right arm for IV, blood draws, or B/P, due to removal of lymph nodes on that side.
--- NOTE | 2017-05-08 02:45 | NUR ---
called report to Trina.
--- NOTE | 2017-05-08 03:05 | NUR ---
RECEIVED PATIENT TO [facility] [place]. ASSISTED TO TRANSFER FROM GURNEY TO BED SINCE PATIENT WAS UNABLE TO SIT, STAND, OR WALK. PATIENT CONFUSED AND ORIENTED TO NAME AND BIRTHDATE ONLY. VITAL SIGNS STABLE. ORIENTED TO ROOM AND UNIT. SAFETY MEASURES IN PLACE.
[2017-05-08 04:00] VITALS: BP 122/71
[2017-05-08] MEDS: BLOOD SUGAR DIAGNOSTIC 1 EACH STRIP VI SCH ×4 (06:53→21:34)
[2017-05-08 07:12] LABS: *BILIRUBIN,URIN NEGATIVE (NEGATIVE); *BLOOD, URINE 2+ (NEGATIVE); *CLARITY,URINE CLEAR (CLEAR); *COLOR,URINE YELLOW (YELLOW); *KETONES,URINE NEGATIVE (NEGATIVE); *PROTEIN,URINE 1+ (NEGATIVE); *UROBILINOGEN,URINE 0.2 E.U./dl (NORMAL); LEUKOCYTE ESTERASE ,URINE NEGATIVE (NEGATIVE); NITRITE, URINE NEGATIVE (NEGATIVE); PH,URINE 5.5 (5.0-8.0); UGLUCOSE NEGATIVE (NEGATIVE)
[2017-05-08] MEDS ORDERED: MORPHINE SULFATE 4 MG/1 ML DISP.SYRIN IV PRN (07:30)
[2017-05-08 07:34] LABS: RBC,URINE 20-50 /HPF (0-3)
[2017-05-08 07:35] LABS: BACTERIA,URINE NONE SEEN /HPF (NONE SEEN); CALCIUM OXALATE CRYSTALS,UR MANY /HPF (NONE SEEN); MUCUS,URINE FEW /LPF (0-FEW); SQUAMOUS EPITHELIAL CELL,UR FEW /HPF (NONE SEEN)
[2017-05-08] MEDS: CARVEDILOL 6.25 MG TABLET PO SCH ×2 (08:00→17:57)
--- NOTE | 2017-05-08 09:02 | NUR ---
COREG HELD BP 101/59 HEART RATE 65.
--- NOTE | 2017-05-08 09:17 | NUR ---
PT AOX2, AGITATED, HYPERVERBAL. PT GIVEN A QUIET ENVIRONMENT AND SPACE. PT TAUGHT BREATHING TECHNIQUES TO CALM DOWN. PT IS NOT RE-DIRECTABLE AT THIS TIME. PT HAD A BM AND PLACED THE BM ON THE SIDE TABLE. PT GIVEN ATIVAN. MEDICATION EFFECTIVE. PT RESTING WITH NO SIGNS OF RESPIRATORY DISTRESS.
[2017-05-08 11:01] LABS: BASOPHILS % (AUTO) 0.3 % (0.0-2.0); EOSINOPHILS % (AUTO) 0.4 % (0.0-7.0); HEMATOCRIT 33.1 % (36.7-47.1); HEMOGLOBIN 10.9 g/dL (12.5-16.3); LYMPHOCYTES # (AUTO) 0.8 K/uL (20.0-40.0); LYMPHOCYTES % (AUTO) 12.6 % (20.5-51.5); MEAN CORPUSCULAR HEMOGLOBIN 27.4 uug (23.8-33.4); MEAN CORPUSCULAR HGB CONC 33 g/dL (32.5-36.3); MEAN CORPUSCULAR VOLUME 83.2 fL (73.0-96.2); MONOCYTES # (AUTO) 0.6 K/uL (2.0-10.0); MONOCYTES % (AUTO) 8.7 % (0.0-11.0); NEUTROPHILS # (AUTO) 5.1 K/uL (1.8-8.9); PLATELET COUNT (AUTO) 194 K/uL (152-348); RED BLOOD CELL COUNT(AUTO) 3.98 MIL/uL (4.06-5.63); WHITE BLOOD COUNT (AUTO) 6.5 K/uL (3.6-10.2)
[2017-05-08 11:12] LABS: ALANINE AMINOTRANSFERASE 15 U/L (16-63); ALKALINE PHOSPHATASE 316 U/L (50-136); ASPARTATE AMINOTRANSFERASE 72 U/L (15-37); BILIRUBIN,TOTAL 0.3 mg/dL (0.2-1.0); CARBON DIOXIDE 32 mmol/L (21-32); CHLORIDE 100 mmol/L (98-107); CREATININE 1.3 mg/dL (0.6-1.3); GLUCOSE 171 mg/dL (74-106); MAGNESIUM 1.4 mg/dL (1.8-2.4); PHOSPHOROUS 3.3 mg/dL (2.5-4.9); POTASSIUM 4.2 mmol/L (3.5-5.1); TOTAL PROTEIN, SERUM 6.4 g/dL (6.4-8.2); UREA NITROGEN, BLOOD 27 mg/dL (7-18)
[2017-05-08 11:22] LABS: THYROID STIMULATING HORMONE 3.492 mIU/mL (0.358-3.740)
[2017-05-08 11:28] VITALS: BP 92/51
--- NOTE | 2017-05-08 12:00 | NUR ---
PT BLOOD SUGAR 156. PT AT THIS TIME IS NOT EATING LUNCH. INSULIN HELD.
[2017-05-08] MEDS ORDERED: MULTIVITAMINS PO SCH (14:30)
[2017-05-08] MEDS ORDERED: ALBUTEROL SULFATE 2.5 MG/3 ML NEBU NEB PRN (14:30)
[2017-05-08] MEDS ORDERED: EVEROLIMUS 7.5 MG PO SCH (14:30)
[2017-05-08] MEDS: MAGNESIUM SULFATE/D5W 100 ML IV SCH ×2 (14:49→15:35)
[2017-05-08] MEDS: LIDOCAINE 5% PATCH TD SCH (15:07)
[2017-05-08] MEDS ORDERED: MIRALAX 17 GM POWD.PACK PO PRN (15:15)
[2017-05-08] MEDS ORDERED: BISACODYL 10 MG SUPP.RECT RC PRN (15:15)
[2017-05-08 15:40] VITALS: BP 107/61
[2017-05-08] MEDS: DOCUSATE SODIUM 100 MG CAPSULE PO SCH (17:00)
[2017-05-08] MEDS ORDERED: METFORMIN HCL 500 MG TABLET PO SCH (18:00)
[2017-05-08] MEDS ORDERED: RIVAROXABAN 10 MG TABLET PO SCH (18:00)
--- NOTE | 2017-05-08 18:42 | NUR ---
PT IS OBSERVED SLEEPING IN BED. NO SIGNS OF REPARATORY DISTRESS, OR PAIN. PT HAS REDNESS IN SACRAL AREA MEPIPLEX APPLIED TO AREA. PILLOWS WEDGED ON NE SIDE OF PT. CONTINUE TO REPOSITION PT AND TO CONTINUE TO MONITOR. PT HAD 2 BM TODAY.
[2017-05-08 20:28] VITALS: BP 120/60
[2017-05-09 04:34] VITALS: BP 110/61
--- NOTE | 2017-05-09 06:45 | NUR ---
PATIENT SLEPT THROUGHOUT THE NIGHT WITHOUT INCIDENT. DENIED PAIN UPON ASSESSMENT. COMPLIANT WITH ACCUCHECKS AND SCHEDULED MEDICATIONS. NO EPISODES OF AGITATION OR ANXIETY. PATIENT HAD 2X URINE AND 2X BOWEL MOVEMENTS LAST NIGHT. BLOOD SUGARS WITHIN DESIRED RANGE. BED LOCKED AND IN LOW POSITION WITH CALL LIGHT WITHIN REACH.
[2017-05-09] MEDS: BLOOD SUGAR DIAGNOSTIC 1 EACH STRIP VI SCH ×2 (06:49→10:59)
[2017-05-09 06:57] LABS: CARBON DIOXIDE 30 mmol/L (21-32); CHLORIDE 100 mmol/L (98-107); CHOLESTEROL 162 mg/dL (<200); CREATININE 1.1 mg/dL (0.6-1.3); GLUCOSE 89 mg/dL (74-106); HDL CHOLESTEROL 47 mg/dL (40-60); MAGNESIUM 1.7 mg/dL (1.8-2.4); PHOSPHOROUS 3.1 mg/dL (2.5-4.9); POTASSIUM 3.8 mmol/L (3.5-5.1); TRIGLYCERIDES 150 MG/DL (30-150); UREA NITROGEN, BLOOD 21 mg/dL (7-18)
[2017-05-09 06:58] LABS: BASOPHILS % (AUTO) 0.4 % (0.0-2.0); EOSINOPHILS % (AUTO) 0.9 % (0.0-7.0); HEMATOCRIT 34.2 % (36.7-47.1); HEMOGLOBIN 11.5 g/dL (12.5-16.3); LYMPHOCYTES # (AUTO) 0.8 K/uL (20.0-40.0); LYMPHOCYTES % (AUTO) 16.5 % (20.5-51.5); MEAN CORPUSCULAR HEMOGLOBIN 27.8 uug (23.8-33.4); MEAN CORPUSCULAR HGB CONC 34 g/dL (32.5-36.3); MEAN CORPUSCULAR VOLUME 82.9 fL (73.0-96.2); MONOCYTES # (AUTO) 0.4 K/uL (2.0-10.0); MONOCYTES % (AUTO) 8.2 % (0.0-11.0); NEUTROPHILS # (AUTO) 3.5 K/uL (1.8-8.9); PLATELET COUNT (AUTO) 189 K/uL (152-348); RED BLOOD CELL COUNT(AUTO) 4.13 MIL/uL (4.06-5.63); WHITE BLOOD COUNT (AUTO) 4.8 K/uL (3.6-10.2)
[2017-05-09] MEDS ORDERED: LEVOTHYROXINE SODIUM 75 MCG TABLET PO SCH (07:00)
--- NOTE | 2017-05-09 07:30 | NUR ---
PT RECEIVED IN BED SLEEPING. NO SIGNS OF REPARATORY DISTRESS, OR PAIN. PT HAS REDNESS IN SACRAL AREA . CONTINUE TO REPOSITION PT AND TO CONTINUE TO MONITOR. CALL LIGHT WITH IN REACH
[2017-05-09] MEDS ORDERED: METFORMIN HCL 500 MG TABLET PO SCH (08:00)
[2017-05-09] MEDS: DOCUSATE SODIUM 100 MG CAPSULE PO SCH (08:01)
[2017-05-09] MEDS: CARVEDILOL 6.25 MG TABLET PO SCH (08:02)
[2017-05-09] MEDS: LIDOCAINE 5% PATCH TD SCH (08:02)
[2017-05-09] MEDS ORDERED: MULTIVITAMINS,THERAPEUTIC TABLET PO SCH (09:00)
[2017-05-09] MEDS ORDERED: MAGNESIUM OXIDE 400 MG TABLET PO SCH (09:00)
[2017-05-09] MEDS ORDERED: ALLOPURINOL 300 MG TABLET PO SCH (09:00)
[2017-05-09] MEDS ORDERED: MAGNESIUM OXIDE 400 MG TABLET PO ONE (10:00)
[2017-05-09 10:51] VITALS: BP 96/56
--- NOTE | 2017-05-09 12:03 | NUR ---
D/C ORDERS RECEIVED NOTED AND CARRIED OUT,D/C INSTRUCTIONS AND EDUCATIONS GIVEN TO THE PT.PT LEFT THE FACILITY VIA PRIVATE AMBULANCES IN STABLE CONDITION.D/C [place] PER MD ORDERS,
== END 2017-05-09 12:12 | disposition home or self-care (01) | DRG 391 ==
LOC: ER 23:33 → MED 05-08 02:46
PROVIDERS: ADMIT Internal Medicine; ATTEND Nurse Practitioner Acute Care
DX: K59.03 Drug induced constipation (principal); N17.0 Acute kidney failure with tubular necrosis; E44.0 Moderate protein-calorie malnutrition; C79.51 Secondary malignant neoplasm of bone; E11.65 Type 2 diabetes mellitus with hyperglycemia; E83.42 Hypomagnesemia; E83.51 Hypocalcemia; T40.2X5A Adverse effect of other opioids, initial encounter; Y92.099 Unspecified place in other non-institutional residence as the place of occurrence of the external cause; C44.90 Unspecified malignant neoplasm of skin, unspecified; K40.90 Unilateral inguinal hernia, without obstruction or gangrene, not specified as recurrent; G89.3 Neoplasm related pain (acute) (chronic); Z79.84 Long term (current) use of oral hypoglycemic drugs; D64.9 Anemia, unspecified; Z68.21 Body mass index [BMI] 21.0-21.9, adult; R74.0 Nonspecific elevation of levels of transaminase and lactic acid dehydrogenase [LDH]; Z87.81 Personal history of (healed) traumatic fracture; Z92.3 Personal history of irradiation; I10 Essential (primary) hypertension; Z66 Do not resuscitate
CPT/HCPCS: 36415; 70030-TC; 71045; 83690; 83735; 84100; 84443; 85025; 85730; 87086; 93005; A4663; J1170; J1815; J2060; J2405; J3475; J7030